=== PATIENT | female | born 1985 | race Caucasian/White ===

== ENCOUNTER 2024-08-15 16:45 | Inpatient (IN) ==
--- NOTE | 2024-08-15 16:56 | ED Triage Note ---
Date of Service August 15, 2024 Provider in Triage Author: Gabriela Varela History of Present Illness This patient was briefly evaluated while in triage. An abbreviated physical exam was performed. This patient is a 39-year-old Female who presents to the ED for evaluation "I need to detox from alcohol" 1 bottle of wine/night x 3 weeks shaky, nausea/vomiting hx of detox, denies seizures Physical Exam GENERAL: NAD CARDIOVASCULAR: RRR RESPIRATORY: CTA ABDOMEN: BS x 4. Nontender to palpation. Initial orders for labs and / or imaging were placed and patient was placed in the waiting area until a bed is available. Please see further documentation for the full ED course.
[2024-08-15 17:22] LABS: Basophils # (auto) 0.03 K/uL (0.00-0.20); Basophils % (auto) 0.4 %; Eosinophils # (auto) 0.04 K/uL (0.00-0.50); Eosinophils % (auto) 0.5 %; Hemoglobin 14.5 g/dl (12.0-16.0); Immature Granulocytes # (auto) 0.02 K/uL (0.01-0.20); Immature Granulocytes % (auto) 0.2 %; Lymphocytes # (auto) 0.62 K/uL (1.20-3.40); Lymphocytes % (auto) 7.7 %; Mean Corpuscular Hemoglobin 34.2 pg (25.0-34.0); Mean Corpuscular Hgb Conc 34.5 g/dL (32.0-36.0); Mean Corpuscular Volume 99.1 fL (80.0-100.0); Mean Platelet Volume 8.4 fL (9.4-12.4); Monocytes # (auto) 0.56 K/uL (0.11-0.59); Neutrophils # (auto) 6.74 K/uL (1.40-6.50); Neutrophils % (auto) 84.2 %; Platelet Count 143 K/uL (130-400); RDW Coefficient of Variation 15.1 % (11.5-14.5); RDW Standard Deviation 54.9 fL (36.4-46.3); Red Blood Count 4.24 M/uL (4.20-5.40); White Blood Count 8.01 K/ul (4.8-10.8)
[2024-08-15 17:37] LABS: Pregnancy Test, Serum Negative (Negative)
[2024-08-15 17:42] LABS: Albumin Globulin Ratio 1.4 (0.9-2); Albumin Level 4.7 gm/dl (3.4-5.0); BUN Creatinine Ratio 13.4 (10-20); Calcium 9.7 mg/dl (8.6-10.3); Globulin 3.4 gm/dl (2.5-4.0); Potassium 3.8 mmol/L (3.5-5.1); Total Protein 8.1 gm/dl (6.0-8.3)
[2024-08-15 17:56] LABS: Thyroid Stimulating Hormone 2.16 uIu/ml (0.300-4.500)
--- NOTE | 2024-08-15 17:57 | Emergency Department Note ---
Impression & Plan Alcohol withdrawal syndrome, Nausea & vomiting, Acute dehydration, Transaminitis ED Provider Note NAME: NYDIA FREITAS AGE: 39 SEX: F : 1985 ARRIVES VIA: Walk-In INFORMANT: Patient, father ED PROVIDER(S): Chaka Mustafa MD CHIEF COMPLAINT: Detox request MEDICAL DECISION MAKING: Patient presents due to concern for detox. Patient does not want to go inpatient at this time. IV was established and blood work was obtained. Patient's blood work shows a normal white count hemoglobin and platelet count kidney function is unremarkable BSG at 110 nonfasting not DKA slight anion gap of 14 but with a normal bicarb. AST of 90 likely secondary to alcohol abuse. Alcohol currently negative. Patient was ordered IV Valium 5 IV as well as IV Zofran IV fluid bolus 1 L. Patient also ordered 50 mg of p.o. Librium. Part assessment the patient's nausea has resolved. The patient still has some tremors and after further discussion the patient is amenable to inpatient detox. Patient was ordered additional IV Valium. I did speak the on-call hospital service Dr. Eisenberg and the patient was admitted to the medicine service. Critical Care: I have personally spent 46 minutes of critical care time in direct management of this patient. This includes bedside care, interpretation of diagnostic studies, and testing, discussion with consultants, patient, and family members, and other require inpatient management activities. This 46 minutes is in excess of all separately billable procedures. Discussion w/ other healthcare providers: Dr. Eisenberg inpatient medicine service Prior /Outside records reviewed: None Differential diagnosis: Overdose, toxicologic, infection, hypoglycemia, electrolyte abnormalities, cardiac sources, intracerebral event, neurologic, trauma, as well as other pathologies. Diagnostics, as interpreted by me: ECG: None Cardiac monitoring: An order was placed for continuous cardiac monitoring. The monitor shows a rate of 102 with tachycardic and regular rhythm. Patient was placed on pulse oximetry Medical decision rules: None Imaging studies: none HPI: Patient presents due to concern for detox request. She is accompanied by family who are at bedside. The patient states that she last drank around 9 or 10:00 last evening. The patient reports that she drinks about 2 bottles of wine daily. Feeling her bedside thinks that she is had a total of 20 L of wine in the last 3 weeks. Patient denies any chest pains or shortness of breath but has had nausea and vomiting. She vomited up to 2 times today. No falls or trauma. Patient reportedly does have a follow-up with [facility] on the . The patient would not like to go inpatient at this time. No prior history of withdrawal related seizures or delirium tremens. Patient believes that she last drank around 9 or 10:00 last evening. Patient denies any drinking today and does not use any tobacco or drugs. The patient did go to rehab in April and states that she [place] drinking at the [place] way [place]. Patient reportedly recently moved from [place]. PAST MEDICAL HISTORY: Hypertension, depression, anxiety PAST SURGICAL HISTORY: Skin grafts SOCIAL HISTORY: See Below HOME MEDICATIONS: See Below ALLERGIES: See Below VITALS: See Below PHYSICAL EXAMINATION: GENERAL: NAD, non-toxic. EYE EXAM: Normal conjunctiva. PERRL, no anisocoria and EOM's grossly intact w/o pain. OROPHARYNX: Dry mucus membranes, grossly normal dentition. NECK: Trachea midline, no stridor. LUNGS: Clear to auscultation. Normal chest wall mechanics. HEART: Tachycardic and regular, no MRG. ABDOMEN: Abdomen soft, non-tender, no masses, no rebound or guarding. BACK: No CVA TTP. SKIN: No rashes and no bruising. UPPER EXTREMITIES: Upper extremities are grossly normal. Bilateral upper extremity tremors. LOWER EXTREMITIES: Grossly normal, no edema. NEURO EXAM: A&O x3, cranial nerves II-XII grossly intact, normal speech, moves all 4 extremities. Past Med/Surg History Problem List (Updated 08/15/24 @ 22:01 by Chaka Mustafa MD) Transaminitis (Acute) Acute dehydration (Acute) Alcohol withdrawal syndrome (Acute) Nausea & vomiting (Acute) Medical History Alcohol use disorder Hypertension Surgical History History of skin graft Family History Other Family history non-contributory Social History Smoking Status: Never smoker Hx Alcohol Use: Yes Hx Substance Use: No Preferred Language: Spanish Feels Safe at Home: Yes Allergies Allergies Allergy/AdvReac Type Severity Reaction Status Date / Time No Known Allergies Allergy Unverified 08/15/24 20:11 Home Meds Home Medications Medication Instructions Recorded Confirmed No Known Home Medications 08/15/24 08/15/24 Results & Data (ED) Vital Signs Vital Signs - 24 hr 08/15/24 16:54 08/15/24 18:55 08/15/24 19:15 Temperature 36.7 C Temperature Source Oral Pulse Rate 111 H 97 H Pulse Rate [Finger] Pulse Rhythm Regular Pulse Rhythm [Finger] Pulse Strength Normal Pulse Strength [Finger] Respiratory Rate 20 Respiratory Effort / Characteristics Respiratory Depth Normal Respiratory Pattern Blood Pressure 180/97 H Blood Pressure [Right Arm] Blood Pressure Mean 124 Blood Pressure Mean [Right Arm] Blood Pressure Position Sitting Blood Pressure Position [Right Arm] Pulse Oximetry 94 Oxygen Delivery Method Room Air Room Air Sepsis Recent Fever Within 48 Hours No Sepsis New/Unexplained Change in Mental Status No Sepsis Action Taken by Nursing No Action Required 08/15/24 19:15 Temperature Temperature Source Pulse Rate Pulse Rate [Finger] 88 Pulse Rhythm Pulse Rhythm [Finger] Regular Pulse Strength Pulse Strength [Finger] Normal Respiratory Rate 18 Respiratory Effort / Characteristics Non-Labored Spontaneous Respiratory Depth Normal Respiratory Pattern Regular Blood Pressure Blood Pressure [Right Arm] 139/94 Blood Pressure Mean Blood Pressure Mean [Right Arm] 109 Blood Pressure Position Blood Pressure Position [Right Arm] Lying Pulse Oximetry 96 Oxygen Delivery Method Room Air Sepsis Recent Fever Within 48 Hours Sepsis New/Unexplained Change in Mental Status Sepsis Action Taken by [facility] Medications Current Medication List: was personally reviewed by me Laboratory Data Attestation: I reviewed the patient's lab results. 08/15/24 17:04 08/15/24 17:04 Lab Results 08/15/24 Range/Units 17:04 WBC 8.01 (4.8-10.8) K/ul RBC 4.24 (4.20-5.40) M/uL Hgb 14.5 (12.0-16.0) g/dl Hct 42.0 (37.0-47.0) % MCV 99.1 (80.0-100.0) fL MCH 34.2 H (25.0-34.0) pg MCHC 34.5 (32.0-36.0) g/dL RDW Std Deviation 54.9 H (36.4-46.3) fL RDW Coeff of Jessenia 15.1 H (11.5-14.5) % Plt Count 143 (130-400) K/uL MPV 8.4 L (9.4-12.4) fL Immature Gran % (Auto) 0.2 % Neut % (Auto) 84.2 % Lymph % (Auto) 7.7 % Randall % (Auto) 7.0 % Eos % (Auto) 0.5 % Baso % (Auto) 0.4 % Neut # (Auto) 6.74 H (1.40-6.50) K/uL Lymph # (Auto) 0.62 L (1.20-3.40) K/uL Randall # (Auto) 0.56 (0.11-0.59) K/uL Eos # (Auto) 0.04 (0.00-0.50) K/uL Baso # (Auto) 0.03 (0.00-0.20) K/uL Immature Gran # (Auto) 0.02 (0.01-0.20) K/uL PT 10.4 (9.0-12.0) Seconds INR 1.0 (0.9-1.1) APTT 26 (21-31) Seconds PTT Ratio 1.0 Sodium 140 (136-145) mmol/L Potassium 3.8 (3.5-5.1) mmol/L Chloride 101 (98-107) mmol/L Carbon Dioxide 25 (21-32) mmol/L Anion Gap 14 H (3-11) BUN 9 (6-23) mg/dl Creatinine 0.67 (0.6-1.2) mg/dl Est Cr Clr Drug Dosing 115.0 ml/min eGFR 113.95 BUN/Creatinine Ratio 13.4 (10-20) Glucose 110 H (70-99(Fasting)) mg/dl Calcium 9.7 (8.6-10.3) mg/dl Total Bilirubin 1.0 (0.2-1.0) mg/dl AST 90 H (13-39) U/L ALT 44 (7-52) U/L Alkaline Phosphatase 89 (34-104) U/L Total Protein 8.1 (6.0-8.3) gm/dl Albumin 4.7 (3.4-5.0) gm/dl Globulin 3.4 (2.5-4.0) gm/dl Albumin/Globulin Ratio 1.4 (0.9-2) TSH 2.160 (0.300-4.500) uIu/ml HCG, Qual Negative (Negative) Ethyl Alcohol mg/dL < 10.0 (<10.0) mg/dl Administered Medications Discontinued Medications Chlordiazepoxide HCl (Chlordiazepoxide Hcl 25 Mg Cap) 50 mg PO NOW ONE Stop: 08/15/24 18:17 Last Admin: 08/15/24 18:58 Dose: 50 mg Documented By: INOCENCIA Diazepam (Diazepam 5 Mg/Ml 10ml Vial) 5 mg IV NOW STA Stop: 08/15/24 18:17 Last Admin: 08/15/24 18:57 Dose: 5 mg Documented By: INOCENCIA Diazepam (Diazepam 5 Mg/Ml 10ml Vial) 5 mg IV NOW STA Stop: 08/15/24 19:50 Last Admin: 08/15/24 20:09 Dose: 5 mg Documented By: INOCENCIA Sodium Chloride (Nss) 1,000 mls @ 999 mls/hr IV .Q1H1M ONE Stop: 08/15/24 19:19 Last Infusion: 08/15/24 20:30 Dose: Infused Documented By: Admin: 08/15/24 18:56 Dose: 999 mls/hr Documented By: INOCENCIA Ondansetron HCl (Ondansetron Inj 2 Mg/Ml 2 Ml Vial) 4 mg IV NOW STA Stop: 08/15/24 18:20 Last Admin: 08/15/24 18:56 Dose: 4 mg Documented By: INOCENCIA Thiamine HCl (Thiamine Hcl 100 Mg Tab) 100 mg PO NOW STA Stop: 08/15/24 20:32 Last Admin: 08/15/24 20:55 Dose: 100 mg Documented By: INOCENCIA Discharge Plan Visit Data Chief Complaint: Detox Request Stated Complaint: DETOX ED Provider: Chaka Mustafa Discharge Problem: Alcohol withdrawal syndrome, Nausea & vomiting, Acute dehydration, Transaminitis Patient Disposition: Admitted As Inpatient Discharge Instructions Interventions: ED Discharge Assessment Last Done: 08/15/24 21:11 Discharge Problem: Alcohol withdrawal syndrome Qualifiers: Complication of substance-induced condition: uncomplicated Qualified Code(s): F 10.930 - Alcohol use, unspecified with withdrawal, uncomplicated Nausea & vomiting Qualifiers: Vomiting type: unspecified Qualified Code(s): R11.2 - Nausea with vomiting, unspecified
[2024-08-15 18:00] LABS: Partial Thromboplastin Time 26 Seconds (21-31); Prothrombin Time 10.4 Seconds (9.0-12.0)
[2024-08-15] MEDS: ONDANSETRON INJ 2 MG/ML 2 ML VIAL IV STA (18:56)
[2024-08-15] MEDS: SODIUM CHLORIDE 0.9% 1,000 ML IV ONE (18:56)
[2024-08-15] MEDS: diazePAM 5 MG/ML 10ML VIAL IV STA ×2 (18:57→20:09)
[2024-08-15] MEDS: chlordiazePOXIDE HCl 25 MG CAP PO ONE (18:58)
--- NOTE | 2024-08-15 20:27 | History & Physical Report ---
Date of Service August 15, 2024 Assessment & Plan (1) Alcohol use disorder: Plan: 39yo female with history of alcohol use disorder presenting with EtOH withdrawal symptoms. Patient reports drinking appx 5 drinks/day. Last drink 08/14/24 around 22:00. She has been having tremors and nausea throughout the day today improved with Librium + Valium administered in the ER. No evidence of tremors during my exam. -Admit to PCU -AWSS with IV Ativan PRN -Continue Librium taper -Thiamine, Folic Acid and MVI PO daily (2) Nausea & vomiting: Plan: Patient with nausea and vomiting earlier today. Reports some hematemesis. Hemodynamically stable, no ongoing nausea. No ASA or blood thinners. No reported history of liver disease or laboratory evidence of such. -Maintain PIV -Protonix 40mg IV BID -Repeat CBC in AM -Consider GI consultation (3) Hypertension: Plan: Blood pressure mildly elevated in setting of EtOH withdrawal. Patient reports she has been prescribed Lisinopril but has not taken it routinely -Continue to monitor BP Plan F/E/N - Saline lock, electrolytes WNL, Regular diet as tolerated Ppx - Low risk for SCDs Code - Full Dispo - Admit to PCU History of Present Illness Chief Complaint: EtOH withdrawal Primary Care Provider: NO PCP Deanne Mcbride is a pleasant 39yo female with history of HTN and alcohol use disorder presenting with EtOH withdrawal. Patient drinks approximately 1 bottle of wine per day (750mL -appx 5 standard drinks) with occasional hard ciders. Last drink was yesterday 08/14/25 around 22:00. Patient has been feeling shaky and tremulous throughout the day today as well as nausea with one episode of vomiting. She did note some possible blood in the vomitus. She denies history of seizure or DTs. No known liver disease. No prior history of GIB. Patient has gone through inpatient rehab on 3 separate occasions - last was this past summer. She does attend AA meetings on occasion - does not have a sponsor. She has home prescriptions for Naltrexone and Gabapentin but does not take them daily. No additional complaints at this time. Patient denies fever, chills, cough, CP, SOB. Denies abdominal pain, nausea at present. No diarrhea. In the ER she received Librium as well as Valium with improvement in symptoms. ER Course: Diazepam 5mg IV x 2 doses Librium 50mg PO Zofran 4mg IV NSS x 1L Allergies Allergy/AdvReac Type Severity Reaction Status Date / Time No Known Allergies Allergy Unverified 08/15/24 20:11 Home Medications Medication Instructions Recorded Confirmed Type No Known Home Medications 08/15/24 08/15/24 History Past Med/Surg History Problem List (Updated 08/15/24 @ 20:32 by Rose Eisenberg DO) Nausea & vomiting Medical History (Updated 08/15/24 @ 20:32 by Rose Eisenberg DO) Alcohol use disorder Hypertension Surgical History (Updated 08/15/24 @ 20:28 by Rose Eisenberg DO) History of skin graft Family History (Updated 08/15/24 @ 20:28 by Rose Eisenberg DO) Other Family history non-contributory Social History (Updated 08/15/24 @ 20:28 by Rose Eisenberg DO) Smoking Status: Never smoker Hx Alcohol Use: Yes Hx Substance Use: No Preferred Language: Setswana Feels Safe at Home: Yes Review of Systems Review of Systems: All systems reviewed & are unremarkable except as noted in HPI & below Physical Exam Physical Exam: General: patient resting comfortably, NAD, non-toxic in appearance, AA&O x 4 Skin: warm, dry, intact, no rashes or lesions HEENT: NC/AT, PERRL, EOMI, anicteric sclera, conjunctiva without injection, external ear normal to inspection and nontender, nares patent, moist mucus membranes, dentition intact, no oropharyngeal lesions, neck supple, trachea midline, no LAD, no thyromegaly, no JVD Heart: +S1/S2, regular, no m/r/g Lungs: equal air entry bilaterally, no rales/rhonchi/wheezes Abd: +BS, soft, NT/ND, no masses/organomegaly/ascites Ext: warm, 2+ pulses in UE/LE bilaterally, no clubbing/cyanosis or edema Neuro: nonfocal, patient AA&O x 4, speech intact, no facial droop, moving all extremities on command with equal strength 5/5 Results & Data Results & Data Vital Signs (Past 12 Hours) Vital Signs Temp Pulse Pulse Resp BP BP Pulse Ox 08/15/24 19:15 88 18 139/94 96 08/15/24 19:15 12/05/24 18:55 97 H 08/15/24 16:54 36.7 C 111 H 20 180/97 H 94 O2 Del Method 08/15/24 19:15 Room Air 08/15/24 19:15 Room Air 08/15/24 18:55 08/15/24 16:54 Room Air Laboratory Results Laboratory Results WBC 8.01 K/ul (4.8-10.8) 08/15/24 17:04 RBC 4.24 M/uL (4.20-5.40) 08/15/24 17:04 Hgb 14.5 g/dl (12.0-16.0) 08/15/24 17:04 Hct 42.0 % (37.0-47.0) 08/15/24 17:04 MCV 99.1 fL (80.0-100.0) 08/15/24 17:04 MCH 34.2 pg (25.0-34.0) H 08/15/24 17:04 MCHC 34.5 g/dL (32.0-36.0) 08/15/24 17:04 RDW Std Deviation 54.9 fL (36.4-46.3) H 08/15/24 17:04 RDW Coeff of Jessenia 15.1 % (11.5-14.5) H 08/15/24 17:04 Plt Count 143 K/uL (130-400) 08/15/24 17:04 MPV 8.4 fL (9.4-12.4) L 08/15/24 17:04 Immature Gran % (Auto) 0.2 % 08/15/24 17:04 Neut % (Auto) 84.2 % 08/15/24 17:04 Lymph % (Auto) 7.7 % 08/15/24 17:04 [place] % (Auto) 7.0 % 08/15/24 17:04 Eos % (Auto) 0.5 % 08/15/24 17:04 Baso % (Auto) 0.4 % 08/15/24 17:04 Neut # (Auto) 6.74 K/uL (1.40-6.50) H 08/15/24 17:04 Lymph # (Auto) 0.62 K/uL (1.20-3.40) L 08/15/24 17:04 [place] # (Auto) 0.56 K/uL (0.11-0.59) 08/15/24 17:04 Eos # (Auto) 0.04 K/uL (0.00-0.50) 08/15/24 17:04 Baso # (Auto) 0.03 K/uL (0.00-0.20) 08/15/24 17:04 Immature Gran # (Auto) 0.02 K/uL (0.01-0.20) 08/15/24 17:04 PT 10.4 Seconds (9.0-12.0) 08/15/24 17:04 INR 1.0 (0.9-1.1) 08/15/24 17:04 APTT 26 Seconds (21-31) 08/15/24 17:04 PTT Ratio 1.0 08/15/24 17:04 Sodium 140 mmol/L (136-145) 08/15/24 17:04 Potassium 3.8 mmol/L (3.5-5.1) 08/15/24 17:04 Chloride 101 mmol/L (98-107) 08/15/24 17:04 Carbon Dioxide 25 mmol/L (21-32) 08/15/24 17:04 Anion Gap 14 (3-11) H 08/15/24 17:04 BUN 9 mg/dl (6-23) 08/15/24 17:04 Creatinine 0.67 mg/dl (0.6-1.2) 08/15/24 17:04 Est Cr Clr Drug Dosing 115.0 ml/min 08/15/24 17:04 eGFR 113.95 08/15/24 17:04 BUN/Creatinine Ratio 13.4 (10-20) 08/15/24 17:04 Glucose 110 mg/dl (70-99(Fasting)) H 08/15/24 17:04 Calcium 9.7 mg/dl (8.6-10.3) 08/15/24 17:04 Total Bilirubin 1.0 mg/dl (0.2-1.0) 08/15/24 17:04 AST 90 U/L (13-39) H 08/15/24 17:04 ALT 44 U/L (7-52) 08/15/24 17:04 Alkaline Phosphatase 89 U/L (34-104) 08/15/24 17:04 Total Protein 8.1 gm/dl (6.0-8.3) 08/15/24 17:04 Albumin 4.7 gm/dl (3.4-5.0) 08/15/24 17:04 Globulin 3.4 gm/dl (2.5-4.0) 08/15/24 17:04 Albumin/Globulin Ratio 1.4 (0.9-2) 08/15/24 17:04 TSH 2.160 uIu/ml (0.300-4.500) 08/15/24 17:04 HCG, Qual Negative (Negative) 08/15/24 17:04 Ethyl Alcohol mg/dL < 10.0 mg/dl (<10.0) 08/15/24 17:04 PG Care Time/CCT Total # of Minutes Spent Total Time Spent with Patient: Total time spent is greater than 50% in coordination of care (as documented) at patient's floor/unit and/or counseling patient: Coding Level of Care Code 89886 INT INP/OBS CARE 3/75MIN Diagnoses Alcohol use disorder F10.90 Nausea & vomiting R11.2 Hypertension I10
[2024-08-15 20:48] LABS: Appearance Urine Clear (Clear); Bacteria Urine Automated None Seen (None Seen); Bilirubin Urine Negative (Negative); Blood Urine Trace (Negative); Color Urine Yellow; Epithelial Cell Urine Auto 0-2 /hpf (0-2); Glucose Urine UA Negative (Negative); Ketones Urine 2+ (Negative); Leukocyte Esterase Urine Negative (Negative); Nitrite Urine Negative (Negative); Protein Urine 2+ (Negative); RBC Urine Automated 0-2 /hpf (0-2); Specific Gravity Urine 1.023 (1.000-1.030); Urobilinogen Urine Negative (Negative); WBC Urine Automated 0-5 /hpf (0-5); pH Urine 5.5 (4.5-7.5)
[2024-08-15] MEDS: THIAMINE HCL 100 MG TAB PO STA (20:55)
[2024-08-15 21:15] LABS: Amphetamines+Metham, Urine Neg (Neg); Barbiturates, Urine Neg (Neg); Benzodiazepine, Urine Neg (Neg); Cocaine, Urine Neg (Neg); Fentanyl, Urine Neg (Neg); MDMA (Ecstacy), Urine Neg (Neg); Marijuana, Urine Neg (Neg); Methadone, Urine Neg (Neg); Opiate, Urine Neg (Neg); Phencyclidine, Urine Neg (Neg)
[2024-08-15] MEDS ORDERED: chlordiazePOXIDE ALCOHOL WITHDRAWL 50MG PO STA (21:45)
[2024-08-15] MEDS ORDERED: ONDANSETRON INJ 2 MG/ML 2 ML VIAL IV PRN (21:45)
[2024-08-15] MEDS ORDERED: Ativan IV Alcohol Withdrawal--Active Protocol IV PRN (21:45)
[2024-08-15] MEDS ORDERED: LORazepam 2 MG/1 ML VIAL IV PRN ×3 (21:45)
[2024-08-15] MEDS: PANTOprazole 40 MG/10 ML SYR IV SCH (22:43)
[2024-08-16] MEDS: chlordiazePOXIDE HCl 25 MG CAP PO SCH ×2 (01:09→11:32)
[2024-08-16 07:06] LABS: Hematocrit (blood only) 40.7 % (37.0-47.0); Hemoglobin 13.5 g/dl (12.0-16.0); Mean Corpuscular Hemoglobin 33.8 pg (25.0-34.0); Mean Corpuscular Hgb Conc 33.2 g/dL (32.0-36.0); Mean Platelet Volume 8.9 fL (9.4-12.4); Platelet Count 129 K/uL (130-400); RDW Coefficient of Variation 14.8 % (11.5-14.5); RDW Standard Deviation 55.9 fL (36.4-46.3); Red Blood Count 3.99 M/uL (4.20-5.40); White Blood Count 4.43 K/ul (4.8-10.8)
[2024-08-16] MEDS: MULTIVITAMIN TAB PO SCH (08:02)
[2024-08-16] MEDS: FOLIC ACID 1 MG TAB PO SCH (08:02)
[2024-08-16] MEDS: THIAMINE HCL 100 MG TAB PO SCH (08:03)
[2024-08-16 09:54] LABS: Albumin Level 3.8 gm/dl (3.4-5.0); Bilirubin,Total 1.3 mg/dl (0.2-1.0); Calcium 9.1 mg/dl (8.6-10.3)
[2024-08-16 10:00] LABS: Albumin Globulin Ratio 1.4 (0.9-2); BUN Creatinine Ratio 12.9 (10-20); Creatinine Clr Calc Pharmacy 124.7 ml/min; Globulin 2.8 gm/dl (2.5-4.0); Total Protein 6.6 gm/dl (6.0-8.3)
[2024-08-16 10:03] LABS: Potassium 3.5 mmol/L (3.5-5.1)
--- NOTE | 2024-08-16 11:36 | Electrocardiogram Report ---
Test Reason : Blood Pressure : */* mmHG Vent. Rate : 99 BPM Atrial Rate : 99 BPM P-R Int : 138 ms QRS Dur : 70 ms QT Int : 346 ms P-R-T Axes : 60 64 56 degrees QTcB Int : 444 ms Poor data quality, interpretation may be adversely affected Normal sinus rhythm Normal ECG No previous ECGs available Confirmed by Bon Fu ([id number]) on 08/16/2024 11:36:13 AM Referred By: REFERRED SELF Confirmed By: Bon Fu
--- NOTE | 2024-08-16 17:57 | Hospitalist Progress Note ---
Date of Service August 16, 2024 Assessment & Plan (1) Alcohol use disorder: Plan: 39yo female with history of HTN, major depressive disorder, and alcohol use disorder presenting with EtOH withdrawal symptoms. Patient reports drinking 2 bottles of wine/day. Last drink 08/14/24 around 22:00. She has been having tremors and nausea prior to admission improved with Librium + Valium administered in the ER. No history of previous seizures or DT. She has never tried to stop drinking on her own without medical detox. Has been drinking more heavily the last 3 years Improved with librium taper-thus far not requiring any IV ativan Continue AWSS with IV Ativan PRN Continue Librium taper Continue Thiamine, Folic Acid and MVI PO daily She has an appt arranged with [facility] on 08/28/24 Plan to resume naltrexone on discharge which she has been on in the past although would defer to PCP once established as her depression is not currently adequately controlled (2) Nausea & vomiting: Plan: Patient with nausea and vomiting prior to admission with small amount of hematemesis. Hemodynamically stable, no ongoing nausea. No ASA or blood thinners. No reported history of liver disease or laboratory evidence of such. Hgb stable today at 13.5. No further vomiting. Suspect EtOH gastritis Change IV PPI to protonix 0mg po daily No need for GI consultation (3) Hypertension: Plan: Blood pressure mildly elevated in setting of EtOH withdrawal. Patient reports she has been prescribed Lisinopril but has not taken it routinely as she ran out 2 months ago has been on lisinopril for 8-9 months prior EtOH also likely causing elevated BPs Can resume lisinopril 10mg po daily Continue to monitor BP, BMP on labs after starting lisinopril (4) Major depressive disorder: Plan: With a long h/o depression. Denies SI/HI Ran out of her sertraline she was on previously Resume sertraline 25mg po hs x 7 days then increase to 50mg hs Advised caution to watch for increased SI Encouraged outpt f/u with Psych-she can find a place in the area Needs to get established with a PCP as well (5) Transaminitis: Plan: AST mildly elevated at 90 on admission, now down to 57 TBili mildly elevated at 1.3 Likely related to EtOH-ic hepatitis Platelets also mildly low but INR normal Encouraged EtOH cessation and this should improve No need for imaging, no hepatomegaly noted on exam Follow LFTs in AM (6) Thrombocytopenia: Plan: mildly low at 129 likely from EtOH use and EtOH-ic hepatitis Check B12 level in AM Follow CBC Encourage EtOH cessation Plan DVT proph-avoid AC given previous hematemesis, add SCDs Dispo-downgrade off PCU to med/surg. Expect possible dc to home in 1-2 days once outside window for severe withdrawal Admission and Anticipated Discharge Date Admission Date: August 15, 2024 Subjective Pt denies pain, denies SOB or CP. No tremors or nausea. Reports a h/o depression and is going through a lot of social issues. Just moved in with her parents as she is from her and 3 children back in [place]. She is currently between jobs. 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 She denies SI/HI, no hallucinations. She has not yet established care here with a PCP or Psychology or Psychiatry. She ran out of her home lisinopril and sertraline a couple months ago. Tele with NSR normal rates Physical Exam Constitutional: WD/WN, vitals as above Respiratory: normal respiratory effort, lungs clear to auscultation Cardiovascular: RRR, no murmur, no edema Gastrointestinal (Abdomen): normal bowel sounds, soft, nontender, no hepatosplenomegaly Psychiatric: Orientation: alert, oriented x 3 and cooperative Affect: + flat affect Mood: + depressed mood Suicidal Thoughts: denies suicidal thoughts, denies suicidal plan and denies suicidal intent Homicidal Thoughts: denies homicidal thoughts Hallucinations: no auditory hallucinations and no visual hallucinations Results & Data Results & Data Vital Signs (Past 12 Hours) Vital Signs Temp Pulse Pulse Resp BP Pulse Ox O2 Del Method 08/16/24 15:31 36.6 C 86 16 150/97 H 99 Room Air 08/16/24 14:26 75 08/16/24 11:12 36.8 C 82 16 150/99 H 96 Room Air 08/16/24 10:06 146/96 H 08/16/24 09:47 Room Air 08/16/24 08:00 36.9 C 86 16 150/99 H 96 Room Air 08/16/24 07:19 81 Laboratory Results CBC, CMP reviewed PG Care Time/CCT Total # of Minutes Spent Total Time Spent with Patient: Total time spent is greater than 50% in coordination of care (as documented) at patient's floor/unit and/or counseling patient: Coding Level of Care Code 88209 SUB INP/OBS CARE 235MIN Diagnoses Alcohol use disorder F10.90 Nausea & vomiting R11.2 Vomiting type: unspecified Hypertension I10 Major depressive disorder F32.9 Transaminitis R74.01 Thrombocytopenia D69.6 (2) Nausea & vomiting Vomiting type: unspecified Qualified Code(s): R11.2 - Nausea with vomiting, unspecified
[2024-08-16] MEDS: SERTRALINE HCL 50 MG TABLET PO SCH (20:03)
[2024-08-17 07:17] LABS: Basophils # (auto) 0.01 K/uL (0.00-0.20); Basophils % (auto) 0.3 %; Eosinophils # (auto) 0.18 K/uL (0.00-0.50); Eosinophils % (auto) 4.7 %; Immature Granulocytes # (auto) 0.01 K/uL (0.01-0.20); Immature Granulocytes % (auto) 0.3 %; Lymphocytes # (auto) 0.88 K/uL (1.20-3.40); Lymphocytes % (auto) 22.8 %; Mean Corpuscular Hemoglobin 34.1 pg (25.0-34.0); Mean Corpuscular Hgb Conc 34.1 g/dL (32.0-36.0); Mean Platelet Volume 9.2 fL (9.4-12.4); Monocytes # (auto) 0.44 K/uL (0.11-0.59); Monocytes % (auto) 11.4 %; Neutrophils # (auto) 2.34 K/uL (1.40-6.50); Neutrophils % (auto) 60.5 %; Platelet Count 134 K/uL (130-400); RDW Coefficient of Variation 14.4 % (11.5-14.5); RDW Standard Deviation 53.1 fL (36.4-46.3); White Blood Count 3.86 K/ul (4.8-10.8)
[2024-08-17 07:47] LABS: Albumin Level 3.9 gm/dl (3.4-5.0); BUN Creatinine Ratio 17.2 (10-20); Bilirubin Direct 0.1 mg/dl (0-0.2); Bilirubin,Total 0.8 mg/dl (0.2-1.0); Calcium 9.3 mg/dl (8.6-10.3); Creatinine Clr Calc Pharmacy 120.8 ml/min; Magnesium 1.7 mg/dl (1.7-2.4); Potassium 3.7 mmol/L (3.5-5.1); Total Protein 6.9 gm/dl (6.0-8.3)
[2024-08-17] MEDS: PANTOprazole 40 MG TAB PO SCH (09:19)
[2024-08-17] MEDS: lisinopril 10 MG TAB PO SCH (09:20)
--- NOTE | 2024-08-17 18:49 | Hospitalist Progress Note ---
Date of Service August 17, 2024 Assessment & Plan (1) Alcohol use disorder: Plan: 39yo female with history of HTN, major depressive disorder, and alcohol use disorder presenting with EtOH withdrawal symptoms. Patient reports drinking 2 bottles of wine/day. Last drink 08/14/24 around 22:00. She has been having tremors and nausea prior to admission improved with Librium + Valium administered in the ER. No history of previous seizures or DT. She has never tried to stop drinking on her own without medical detox. Has been drinking more heavily the last 3 years Improved with librium taper-thus far not requiring any IV ativan. Continue AWSS with IV Ativan PRN Continue Librium taper Continue Thiamine, Folic Acid and MVI PO daily She has an appt arranged with [facility] counseling center on 08/28/24 Plan to resume naltrexone on discharge which she has been on in the past although would defer to PCP once established as her depression is not currently adequately controlled LFTs have completely resolved at this point. Patient with no acute complaints (2) Nausea & vomiting: Plan: Patient with nausea and vomiting prior to admission with small amount of hematemesis. Hemodynamically stable, no ongoing nausea. No ASA or blood thinners. No reported history of liver disease or laboratory evidence of such. Hgb stable today at 13.5. No further vomiting. Patient denies any further nausea. Suspect EtOH gastritis Change IV PPI to protonix 40mg po daily No need for GI consultation (3) Hypertension: Plan: Blood pressure mildly elevated in setting of EtOH withdrawal. Patient reports she has been prescribed Lisinopril but has not taken it routinely as she ran out 2 months ago has been on lisinopril for 8-9 months prior EtOH also likely causing elevated BPs Can resume lisinopril 10mg po daily Continue to monitor BP, BMP on labs after starting lisinopril (4) Major depressive disorder: Plan: With a long h/o depression. Denies SI/HI Ran out of her sertraline she was on previously Resume sertraline 25mg po hs x 7 days then increase to 50mg hs Advised caution to watch for increased SI Encouraged outpt f/u with Psych-she can find a place in the area Needs to get established with a PCP as well (5) Transaminitis: Plan: AST mildly elevated at 90 on admission, now down to 57 TBili mildly elevated at 1.3 Likely related to EtOH-ic hepatitis Platelets also mildly low but INR normal Encouraged EtOH cessation and this should improve No need for imaging, no hepatomegaly noted on exam LFTs within normal target range on 08/17/2024. (6) Thrombocytopenia: Plan: mildly low at 129 likely from EtOH use and EtOH-ic hepatitis Check B12 level in AM Follow CBC Encourage EtOH cessation Plan DVT proph-avoid AC given previous hematemesis, add SCDs Dispo-downgraded off PCU to med/surg. Expect possible dc to home toorrow Admission and Anticipated Discharge Date Admission Date: August 15, 2024 Supervising Physician Co-Signing Physician Notes chart reviewed, case d/w E Eric PAC - as above Subjective Attending: Dr. Carvalho 39-year-old female admitted for alcohol withdrawal. Last drink 08/14/2024 at 10 PM Patient is doing very well. Will begin to taper Librium tonight. No evidence of withdrawal. She is somewhat fatigued versus depressed. Father is with her in the room and is very supportive Patient questioning discharge plan. Hopefully can discharge tomorrow. Patient is currently staying with her parents and is scheduled for follow-up with alcohol counseling on 08/28/2024 No acute complaints at this time. Eating well. Nursing reports 95% of meals without difficulty. Beginning to ambulate in the hallways. Review of Systems 2 Review of Systems: A total of 10 systems was reviewed and is negative other than as listed in the HPI Physical Exam 2 Physical Exam: GENERAL : No acute distress EYES: No icterus, gaze conjugate NOSE: No evidence of epistaxis MOUTH: No lesions or candidiasis NECK: Supple LUNGS: CTA B/L, no wheezes, rales or rhonchi HEART: Regular, rate controlled ABDOMEN: Soft, NT, ND, BS Present EXTREMITIES: No LE edema, pedal pulses intact NEURO: A&OX3 Results & Data Results & Data Vital Signs (Past 12 Hours) Vital Signs Temp Pulse Resp BP BP Pulse Ox O2 Del Method 08/17/24 15:07 36.7 C 88 16 130/89 98 Room Air 08/17/24 11:21 36.7 C 78 16 138/90 98 Room Air 08/17/24 07:23 36.7 C 74 18 145/95 H 97 Room Air Laboratory Results 08/17/24 06:31 08/17/24 06:31 Laboratory Tests 08/17/24 06:31 Total Bilirubin 0.8 D AST 38 ALT 28 PG Care Time/CCT Total # of Minutes Spent Total Time Spent with Patient: Total time spent is greater than 50% in coordination of care (as documented) at patient's floor/unit and/or counseling patient:35 minutes including discussion with family and with other providers Coding Level of Care Code 18725 SUB INP/OBS CARE 2/35MIN Diagnoses Alcohol use disorder F10.90 Nausea & vomiting R11.2 Vomiting type: unspecified Hypertension I10 Major depressive disorder F32.9 Transaminitis R74.01 Thrombocytopenia D69.6 Time Spent (min) 35 (2) Nausea & vomiting Vomiting type: unspecified Qualified Code(s): R11.2 - Nausea with vomiting, unspecified
[2024-08-17] MEDS: chlordiazePOXIDE HCl 25 MG CAP PO SCH (20:52)
[2024-08-18] MEDS ORDERED: chlordiazePOXIDE HCl 25 MG CAP PO SCH ×2
[2024-08-18 06:31] LABS: Hematocrit (blood only) 41.3 % (37.0-47.0); Hemoglobin 13.9 g/dl (12.0-16.0); Mean Corpuscular Hemoglobin 34.3 pg (25.0-34.0); Mean Corpuscular Hgb Conc 33.7 g/dL (32.0-36.0); Mean Platelet Volume 9.5 fL (9.4-12.4); Platelet Count 127 K/uL (130-400); RDW Coefficient of Variation 14.3 % (11.5-14.5); RDW Standard Deviation 53.6 fL (36.4-46.3); Red Blood Count 4.05 M/uL (4.20-5.40); White Blood Count 4.51 K/ul (4.8-10.8)
[2024-08-18 06:48] LABS: Albumin Globulin Ratio 1.3 (0.9-2); Albumin Level 3.9 gm/dl (3.4-5.0); BUN Creatinine Ratio 22.4 (10-20); Bilirubin,Total 0.6 mg/dl (0.2-1.0); Calcium 9.4 mg/dl (8.6-10.3); Creatinine Clr Calc Pharmacy 133.3 ml/min; Globulin 3.1 gm/dl (2.5-4.0); Potassium 3.6 mmol/L (3.5-5.1)
--- NOTE | 2024-08-18 12:14 | Discharge Summary ---
Discharge Summary Date of Service August 18, 2024 Principal Dx & Hospital Course #1 = Principal Diagnosis (1) Alcohol use disorder: 39yo female with history of HTN, major depressive disorder, and alcohol use disorder presenting with EtOH withdrawal symptoms. Patient reports drinking 2 bottles of wine/day. Last drink 08/14/24 around 22:00. She has been having tremors and nausea prior to admission improved with Librium + Valium administered in the ER. No history of previous seizures or DT. She has never tried to stop drinking on her own without medical detox. Has been drinking more heavily the last 3 years Improved with librium taper-thus far not requiring any IV ativan. Will send patient home on Librium taper. Specific instructions were attached to the prescription Continue Thiamine, Folic Acid and MVI PO daily. Rx was sent to patient's [facility]. She is aware that it may be [id number] and not covered by her insurance. She has an appt arranged with [facility] counseling center on 08/28/24. This was reiterated for the importance of attending this appointment prior to discharge. Plan to resume naltrexone on discharge which she has been on in the past although would defer to PCP once established as her depression is not currently adequately controlled and she is scheduled to see outpatient alcohol counselor LFTs have completely resolved at this point. Patient with no acute complaints (2) Nausea & vomiting: Resolved Patient with nausea and vomiting prior to admission with small amount of hematemesis. Hemodynamically stable, no ongoing nausea. No ASA or blood thinners. No reported history of liver disease or laboratory evidence of such. Hgb stable today at 13.5. No further vomiting. Patient denies any further nausea. Suspect EtOH gastritis Change IV PPI to protonix 40mg po daily No need for GI consultation (3) Hypertension: Blood pressure mildly elevated in setting of EtOH withdrawal. Patient reports she has been prescribed Lisinopril but has not taken it routinely as she ran out 2 months ago Has been on lisinopril for 8-9 months prior EtOH also likely causing elevated BPs Can resume lisinopril 10mg po daily. Prescription sent to the patient's outpatient pharmacy Continue to monitor BP, BMP on labs after starting lisinopril (4) Major depressive disorder: With a long h/o depression. Denies SI/HI Ran out of her sertraline she was on previously Resume sertraline 25mg po hs x 7 days then increase to 50mg hs Advised caution to watch for increased feelings for suicide Encouraged outpt f/u with Psych-she can find a place in the area Needs to get established with a PCP as well (5) Transaminitis: AST mildly elevated at 90 on admission, now down to 57 TBili mildly elevated at 1.3 Likely related to EtOH-ic hepatitis Platelets also mildly low but INR normal Encouraged EtOH cessation and this should improve No need for imaging, no hepatomegaly noted on exam LFTs within normal target range on 08/17/2024.. Platelets are stable and above 100,000 (6) Thrombocytopenia: mildly low at 129 likely from EtOH use and EtOH-ic hepatitis Follow CBC with primary care provider Encourage EtOH cessation (7) Vitamin B12 deficiency: Vit B12 checked 08/18/2024 and was low at 157 pg/mL (180-914) Will start with 1000 iu daily Follow up in 3 months and follow up with PCP. Plan DVT proph-avoid AC given previous hematemesis, add SCDs Discharge home today Have contacted our patient navigator and asked her to establish a new PCP and schedule a follow up appointment Admission HPI Per Admitting Provider Deanne Mcbride is a pleasant 39yo female with history of HTN and alcohol use disorder presenting with EtOH withdrawal. Patient drinks approximately 1 bottle of wine per day (750mL -appx 5 standard drinks) with occasional hard ciders. Last drink was yesterday 08/14/25 around 22:00. Patient has been feeling shaky and tremulous throughout the day today as well as nausea with one episode of vomiting. She did note some possible blood in the vomitus. She denies history of seizure or DTs. No known liver disease. No prior history of GIB. Patient has gone through inpatient rehab on 3 separate occasions - last was this past summer. She does attend AA meetings on occasion - does not have a sponsor. She has home prescriptions for Naltrexone and Gabapentin but does not take them daily. No additional complaints at this time. Patient denies fever, chills, cough, CP, SOB. Denies abdominal pain, nausea at present. No diarrhea. In the ER she received Librium as well as Valium with improvement in symptoms. ER Course: Diazepam 5mg IV x 2 doses Librium 50mg PO Zofran 4mg IV NSS x 1L Admission Exam Per Admitting Provider Physical Exam: General: patient resting comfortably, NAD, non-toxic in appearance, AA&O x 4 Skin: warm, dry, intact, no rashes or lesions HEENT: NC/AT, PERRL, EOMI, anicteric sclera, conjunctiva without injection, external ear normal to inspection and nontender, nares patent, moist mucus membranes, dentition intact, no oropharyngeal lesions, neck supple, trachea midline, no LAD, no thyromegaly, no JVD Heart: +S1/S2, regular, no m/r/g Lungs: equal air entry bilaterally, no rales/rhonchi/wheezes Abd: +BS, soft, NT/ND, no masses/organomegaly/ascites Ext: warm, 2+ pulses in UE/LE bilaterally, no clubbing/cyanosis or edema Neuro: nonfocal, patient AA&O x 4, speech intact, no facial droop, moving all extremities on command with equal strength 5/5 Discharge Exam GENERAL : No acute distress EYES: No icterus, gaze conjugate NOSE: No evidence of epistaxis MOUTH: No lesions or candidiasis NECK: Supple LUNGS: CTA B/L, no wheezes, rales or rhonchi HEART: Regular, rate controlled ABDOMEN: Soft, NT, ND, BS Present EXTREMITIES: No LE edema, pedal pulses intact NEURO: A&OX3 Discharge Plan Discharge Items Patient Disposition: Home - Self-Care Reason For Visit: ETOH WITHDRAWAL Discharge Diagnosis: Alcohol withdrawal Activity: Resume your previous activity Lifting: Gradually increase as tolerated Bathing: No limitations Exercise/Sports: Gradually increase as tolerated Driving/Machine Use: You should not drive while taking Librium (chlordiazepoxide) Weightbearing: Full weightbearing Non-emergency contact: Primary Care Provider Call non-emergency contact if: you have any medication questions and you have a fever Follow-up/Referrals: PCP,NO [Primary Care Provider] - Diet: Regular Diet Comment: No foods containing any alcohol Addtl Attending Provider Instructions: You admitted for alcohol withdrawal and received benzodiazepines as well as vitamin supplements and Librium to assist with your withdrawal You will be discharged on a short Librium (chlordiazepoxide) taper. Please take medication as prescribed You should also continue on thiamine, folic acid, and a multivitamin daily. The thiamine and folic acid will be sent into your pharmacy. The multivitamin is [id number]. Follow-up with [place] outpatient alcohol counseling center on 08/28/2024. If you begin to have further symptoms of withdrawal including fast heart rate, anger, agitation, tremors, nausea and vomiting, shortness of breath, chest pain, weakness, please return to the emergency department or your primary care provider for evaluation Abstain from all alcohol products including food containing alcohol. Your vitamin B12 levels were very low. A prescription was sent to your pharmacy for Cyanocobalamin 1000 units by mouth daily. You should take this as prescribed and follow up with labs to check your vitamin B12 level in 3 months. You should establish with a primary care provider if you plan on staying in this area. I have contacted out patient navigator and asked that she schedule an outpatient appointment for you. Please follow through with all outpatient appointments. Pending Studies at Discharge: No Stand-Alone Forms: My [facility] Medications and DC Order Prescriptions: New thiamine HCl (vitamin B1) 100 mg Tablet 100 mg PO QAM Qty: 30 0RF pantoprazole 40 mg Tablet,Delayed Release (Dr/Ec) 40 mg PO QAM Qty: 30 0RF lisinopril 10 mg Tablet 10 mg PO QAM Qty: 30 0RF chlordiazepoxide HCl 10 mg Capsule 10 mg PO Q12H Qty: 2 0RF Rx Instructions: Take one capsule 08/19/2024 at bedtime and one capsule 08/20/2024 in the morning and then stop folic acid 1 mg Tablet 1 mg PO QAM Qty: 30 0RF sertraline 50 mg Tablet 25 mg PO HS Qty: 30 0RF multivitamin with folic acid [Daily-Leeanna (with folic acid)] 400 mcg Tablet 1 tab PO QAM Qty: 30 0RF chlordiazepoxide HCl 25 mg capsule 25 mg PO Q8H Qty: 2 0RF Rx Instructions: Take one capsule 08/18/2024 at bedtime and one capsule 08/19/2024 in the morning cyanocobalamin (vitamin B-12) 1,000 mcg tablet 1,000 mcg PO DAILY Qty: 90 0RF Discharge Orders: Discharge Order (Routine); Ordered 08/18/24 Ordered By: Ilia Frias/Other Patient Handouts: Chlordiazepoxide Oral Capsule, Alcoholism Resources Admission Data Admit Date/Time: 08/15/24 20:16 Attending Provider: Syed Carvalho Admit Provider: Rose Eisenberg Primary Care Provider: PCP,NO Other Providers: Rose Eisenberg Other Interventions: Discharge Summary Assessment (RN) Last Done: 08/18/24 12:07 Hospital Stay Data Consultations 08/15/24 19:51 ED Decision to Admit Stat 08/17/24 19:45 Consult Behavioral Health Liaison Routine Pending Results Patient Have Any Pending Studies at Discharge: No Discharge Instructions Given to Patient (Per Discharging Provider) You admitted for alcohol withdrawal and received benzodiazepines as well as vitamin supplements and Librium to assist with your withdrawal You will be discharged on a short Librium (chlordiazepoxide) taper. Please take medication as prescribed You should also continue on thiamine, folic acid, and a multivitamin daily. The thiamine and folic acid will be sent into your pharmacy. The multivitamin is [id number]. Follow-up with [place] outpatient alcohol counseling center on 08/28/2024. If you begin to have further symptoms of withdrawal including fast heart rate, anger, agitation, tremors, nausea and vomiting, shortness of breath, chest pain, weakness, please return to the emergency department or your primary care provider for evaluation Abstain from all alcohol products including food containing alcohol. Your vitamin B12 levels were very low. A prescription was sent to your pharmacy for Cyanocobalamin 1000 units by mouth daily. You should take this as prescribed and follow up with labs to check your vitamin B12 level in 3 months. You should establish with a primary care provider if you plan on staying in this area. I have contacted out patient navigator and asked that she schedule an outpatient appointment for you. Please follow through with all outpatient appointments. Supervising Physician Co-Signing Physician Notes I personally examined the patient and verified all fajardo points of history and exam, discussed case, and agree with decision making with Jia Reyes PAC Feels okay to go home. vitals noted nad heent nc at mmm breathing unlabored no accessory mucsles good effort EtOH withdrawal - doing better safe/stable for home, otehrwise as above Total Time Total Time Spent Total Time Spent (In Minutes): 40 Coding Level of Care Code 42636 INP/OBS DISCH >30 MIN Diagnoses Alcohol use disorder F10.90 Nausea & vomiting R11.2 Vomiting type: unspecified Hypertension I10 Major depressive disorder F32.9 Transaminitis R74.01 Thrombocytopenia D69.6 Vitamin B12 deficiency E53.8 Time Spent (min) 40
[2024-08-18] MEDS: INFLUENZA VACC TS2024-25(6m+)/PF (IIV3) 0.5mL Syr IM ONE (16:01)
== END 2024-08-18 16:04 | disposition home or self-care (01) | DRG 896 ==
LOC: ED 16:45 → SUATTDRO 20:16 → 2S 20:16 → 3E 08-16 21:07